=== PATIENT | female | born 1990 | race African-American/Black ===

== ENCOUNTER 2016-12-16 05:08 | Emergency (ER) | payer OTHER ==
[~2016-12-16] VITALS: Ht 157.5 cm; Wt 65.8 kg
[2016-12-16 05:27] LABS: URINE BILIRUBIN NEGATIVE (Negative); URINE BLOOD NEGATIVE (Negative); URINE COLOR YELLOW; URINE GLUCOSE-RANDOM* NEGATIVE (Negative); URINE KETONES 3+ (Negative); URINE LEUKOCYTES-REFLEX NEGATIVE (Negative); URINE PROTEIN (DIPSTICK) 1+ (Negative); URINE SPECIFIC GRAVITY >= 1.030 (1.003-1.035)
[2016-12-16 05:49] LABS: HEMATOCRIT 39.4 % (37.0-47.0); HEMOGLOBIN 13.9 gm/dL (12.0-15.0); MCH 34.3 pg (26.0-34.0); MCHC 35.4 g/dL (28.0-37.0); MCV 96.7 fL (80.0-100.0); PLATELET COUNT 306 thou/uL (150-400); RBC 4.07 mil/uL (4.20-5.00); RDW 12.8 % (10.5-14.5); WBC 11.6 thou/uL (4.0-11.0)
[2016-12-16 05:54] LABS: SQUAMOUS >10 Many /LPF (0-3)
[2016-12-16 05:55] LABS: CASTS None Seen /LPF (None Seen)
[2016-12-16 05:56] LABS: CRYSTALS None Seen /LPF (None Seen); URINE RBC None Seen /HPF (0-2); URINE WBC-REFLEX None Seen /HPF (0-5)
[2016-12-16 05:57] LABS: CALCIUM 10.1 mg/dL (8.5-10.1); CREATININE 0.7 mg/dL (0.6-1.0); MANUAL DIFF YES; POTASSIUM 3.9 mmol/L (3.5-5.1)
[2016-12-16 06:01] LABS: ALBUMIN 4.2 g/dL (3.4-5.0); TOTAL BILIRUBIN 0.5 mg/dL (<0.1-1.0); TOTAL PROTEIN 9.6 g/dL (6.4-8.2)
[2016-12-16] MEDS ORDERED: PROMS25 WY RECTAL ×3 (06:05→07:01)
[2016-12-16] MEDS ORDERED: PEPCID20 MG PO ×2 (06:07→07:01)
[2016-12-16 06:27] LABS: ABSOLUTE NEUTROPHILS 8.9 thou/uL (1.4-8.2); PLATELET ESTIMATE NORMAL; TOTAL CELL COUNT 100
[2016-12-16] MEDS ORDERED: DICLEGIS DR 101 EACH PO (08:39)
[2016-12-16 09:09] VITALS: BP 128/70
== END 2016-12-16 09:17 | disposition home or self-care (01) ==
LOC: ER 05:08
PROVIDERS: Emergency Medicine
DX: O21.0 Mild hyperemesis gravidarum (principal); Z3A.01 Less than 8 weeks gestation of pregnancy

== ENCOUNTER 2018-06-25 13:17 | Emergency (ER) | payer OTHER ==
[~2018-06-25] VITALS: Ht 157.5 cm; Wt 61.2 kg
[~2018-06-25 13:17] MED LIST: DICLEGIS DR 101 EACH PO; PEPCID20 MG PO; PROMS25 WY RECTAL
[2018-06-25 14:30] VITALS: BP 113/69
== END 2018-06-25 14:30 | disposition home or self-care (01) ==
LOC: ER 13:17
DX: J02.9 Acute pharyngitis, unspecified (principal)

== ENCOUNTER 2018-09-20 11:57 | Emergency (ER) | payer OTHER ==
[~2018-09-20] VITALS: Ht 154.9 cm; Wt 62.6 kg
[2018-09-20 11:58] VITALS: BP 125/63
[2018-09-20] MEDS ORDERED: NORFLEX100 MG PO (12:31)
[2018-09-20] MEDS ORDERED: MOBIC7.5 MG PO (12:34)
== END 2018-09-20 12:43 | disposition home or self-care (01) ==
LOC: ER 11:57
DX: S16.1XXA Strain of muscle, fascia and tendon at neck level, initial encounter (principal); S29.012A Strain of muscle and tendon of back wall of thorax, initial encounter; V89.2XXA Person injured in unspecified motor-vehicle accident, traffic, initial encounter; Y93.I9 Activity, other involving external motion; Y92.410 Unspecified street and highway as the place of occurrence of the external cause; Y99.8 Other external cause status

== ENCOUNTER 2019-03-03 07:11 | Emergency (ER) | payer OTHER ==
[~2019-03-03] VITALS: Ht 154.9 cm; Wt 63.5 kg
[~2019-03-03 07:11] MED LIST changes: +MOBIC7.5 MG PO; +NORFLEX100 MG PO
[2019-03-03 08:42] VITALS: BP 131/92
== END 2019-03-03 08:50 | disposition home or self-care (01) ==
LOC: ER 07:11
DX: J02.9 Acute pharyngitis, unspecified (principal)

== ENCOUNTER 2019-04-19 11:11 | Emergency (ER) | payer OTHER ==
[~2019-04-19] VITALS: Ht 154.9 cm; Wt 61.2 kg
[2019-04-19 11:42] LABS: URINE BLOOD 3+ (Negative); URINE CLARITY CLEAR; URINE COLOR YELLOW; URINE GLUCOSE-RANDOM* NEGATIVE (Negative); URINE KETONES NEGATIVE (Negative); URINE LEUKOCYTES-REFLEX NEGATIVE (Negative); URINE NITRITE-REFLEX NEGATIVE (Negative); URINE PROTEIN (DIPSTICK) TRACE (Negative); URINE SPECIFIC GRAVITY >= 1.030 (1.005-1.035)
[2019-04-19 11:45] LABS: ABSOLUTE NEUTROPHILS 2.9 thou/uL (1.4-8.2); EOSINOPHILS 3.2 % (0.0-3.0); HEMATOCRIT 36.3 % (37.0-47.0); HEMOGLOBIN 12.3 gm/dL (12.0-15.0); LYMPHOCYTES 41.8 % (24.0-44.0); MCH 33.5 pg (26.0-34.0); MCHC 33.9 g/dL (28.0-37.0); MCV 98.8 fL (80.0-100.0); MONOCYTES 11.7 % (1.0-8.0); PLATELET COUNT 307 thou/uL (150-400); POLYS 42.3 % (36.0-66.0); RBC 3.67 mil/uL (4.20-5.00); RDW 12.6 % (10.5-14.5); WBC 6.7 thou/uL (4.0-11.0)
[2019-04-19 11:50] LABS: ICTOTEST (BILI CONFIRMATORY) Negative (Negative); URINE BILIRUBIN NEGATIVE (Negative)
[2019-04-19 11:55] LABS: CALCIUM 8.8 mg/dL (8.5-10.1); CREATININE 0.9 mg/dL (0.6-1.0); POTASSIUM 3.7 mmol/L (3.5-5.1)
[2019-04-19 11:57] LABS: BACTERIA-REFLEX None Seen /HPF (None Seen); CASTS None Seen /LPF (None Seen); CRYSTALS None Seen /LPF (None Seen); MUCUS 4-6 Moderate strn/LPF (None Seen); SQUAMOUS 4-10 Moderate /LPF (0-3); URINE RBC >20 Many /HPF (0-2); URINE WBC-REFLEX None Seen /HPF (0-5)
[2019-04-19] MEDS ORDERED: NORFLEX100 MG PO (12:13)
[2019-04-19] MEDS ORDERED: IBUPROFEN 600600 M1 PO (12:13)
[2019-04-19 12:18] VITALS: BP 117/90
== END 2019-04-19 12:19 | disposition home or self-care (01) ==
LOC: ER 11:11
PROVIDERS: Nurse Practitioner Family
DX: S39.012A Strain of muscle, fascia and tendon of lower back, initial encounter (principal); G43.909 Migraine, unspecified, not intractable, without status migrainosus; X50.0XXA Overexertion from strenuous movement or load, initial encounter; Y92.89 Other specified places as the place of occurrence of the external cause; Y93.89 Activity, other specified; Y99.8 Other external cause status